=== PATIENT | male | born 1970 | race Caucasian/White ===

== ENCOUNTER 2017-05-14 13:58 | Emergency (ER) | payer SELFPAY ==
[~2017-05-14] VITALS: Ht 180.3 cm; Wt 111.1 kg
[2017-05-14 14:28] VITALS: BP 146/95
--- NOTE | 2017-05-14 15:36 | NUR ---
PT TO CHAIR B
--- NOTE | 2017-05-14 15:45 | NUR ---
46M BIB SELF WITH C/O 7/10 "PRESSURE" NON RADIATING RIGHT FRONTAL LOBE HEADACHE X 1 WK; PT REPORT TODAY WITH RIGHT EYE PAIN , NOTABLE REDNESS AND SWELLING TO EYELID. PT IS AOX4 WITH STEADY GAIT. RR ARE EVEN AND UNLABORED. NAD. AWAITING ER MD JOSEPH. WILL CONTINUE TO MONITOR.
[2017-05-14] MEDS ORDERED: PROCHLORPERAZINE 10 MG/2 ML VIAL IVP ONE (16:30)
[2017-05-14] MEDS ORDERED: NACL 0.9% 500 ML IV ONE (16:30)
[2017-05-14] MEDS ORDERED: KETOROLAC 30 MG/ML VIAL IVP ONE (16:30)
--- NOTE | 2017-05-14 16:45 | NUR ---
INFLUENZA COLLECTED AND SENT TO LAB
--- NOTE | 2017-05-14 17:55 | NUR ---
Олег perea in ED - 05/21/17 at 0732 by LYNN NS BOLUS ENDED. TOTAL AMOUNT INFUSED 1000CC OF NS.
--- NOTE | 2017-05-14 17:55 | NUR ---
IV FLUIDS 0.9% NS BOLUS ENDED. TOTAL AMOUNT INFUSED 1000CC.
--- NOTE | 2017-05-14 18:25 | NUR ---
PATIENT LEFT WITHOUT SIGNING OR OBTAINING DISCHARGE PAPERWORK.
== END 2017-05-14 18:25 | disposition home or self-care (01) ==
LOC: MED 13:58
DX: G44.009 Cluster headache syndrome, unspecified, not intractable (principal); I10 Essential (primary) hypertension; E78.00 Pure hypercholesterolemia, unspecified; F17.210 Nicotine dependence, cigarettes, uncomplicated
CPT/HCPCS: 36415; 70450; 87804; 96361; 96374; 96375; 99285; J0780; J1885; J7030